=== PATIENT | male | born 1960 | race Caucasian/White ===

== ENCOUNTER 2017-05-04 05:59 | Inpatient (IN) | payer OTHER ==
[2017-04-19 15:31] LABS: BASOPHILS % (AUTO) 2.1 % (0.0-2.0); HEMATOCRIT 51.7 % (42.0-52.0); HEMOGLOBIN 17.6 G/DL (14.2-18.0); LYMPHOCYTES % (AUTO) 28.3 % (20.0-45.0); MEAN CORPUSCULAR VOLUME 93 FL (80-99); MONOCYTES % (AUTO) 6.7 % (1.0-10.0); NEUTROPHILS % (AUTO) 57.9 % (45.0-75.0); PLATELET COUNT 310 K/UL (150-450); RED BLOOD COUNT 5.57 M/UL (4.70-6.10); RED CELL DISTRIBUTION WIDTH 11.2 % (11.6-14.8); WHITE BLOOD COUNT 11.3 K/UL (4.8-10.8)
[2017-04-19 15:45] LABS: APPEARANCE,URINE CLEAR; BILIRUBIN, URINE NEGATIVE (NEGATIVE); COLOR,URINE PALE YELLOW; GLUCOSE, URINE (UA) 4+ (NEGATIVE); KETONES,URINE NEGATIVE (NEGATIVE); LEUKOCYTE ESTERASE ,URINE NEGATIVE (NEGATIVE); NITRITE,URINE NEGATIVE (NEGATIVE); PH,URINE 6 (4.5-8.0); PROTEIN,URINE NEGATIVE (NEGATIVE); UROBILINOGEN,URINE NORMAL MG/DL (0.0-1.0)
[2017-04-19 15:56] LABS: ALANINE AMINOTRANSFERASE 144 U/L (12-78); ALBUMIN 4.2 G/DL (3.4-5.0); ALBUMIN/GLOBULIN RATIO 1.1 (1.0-2.7); ALKALINE PHOSPHATASE 120 U/L (46-116); ANION GAP 8 mmol/L (5-15); ASPARTATE AMINO TRANSFERASE 62 U/L (15-37); BILIRUBIN,TOTAL 1.1 MG/DL (0.2-1.0); BLOOD UREA NITROGEN 15 mg/dL (7-18); CALCIUM 9.4 MG/DL (8.5-10.1); CARBON DIOXIDE 28 MMOL/L (21-32); CHLORIDE 100 MMOL/L (98-107); POTASSIUM 4.1 MMOL/L (3.5-5.1); SODIUM 136 MMOL/L (136-145)
[2017-04-19 16:16] LABS: BILIRUBIN,DIRECT 0.1 MG/DL (0.0-0.3)
--- NOTE | 2017-04-19 16:18 | Diagnostic Imaging Report ---
Indication: Dyspnea Comparison: None 2 views of the chest obtained. No definite infiltrate or pulmonary vascular congestion identified. The heart is enlarged. The aorta is mildly enlarged consistent with atherosclerotic vascular disease. Degenerative changes of the thoracic spine noted. The bones are osteopenic. Impression: No acute disease
[2017-05-04] VITALS (13 sets, daily range): BP systolic 90–130; BP diastolic 47–87
[~2017-05-04] VITALS: Ht 185.4 cm; Wt 114.3 kg
[2017-05-04] MEDS ORDERED: ceFAZolin sod 2 GM in D5W 110 ML IVPB SCH (07:00)
[2017-05-04] MEDS ORDERED: Thrombin 5000 units TOPIC ONE (07:14)
[2017-05-04] MEDS ORDERED: Bupivacaine 0.5% Inj 30 ml vial INJ ONE (07:15)
[2017-05-04] MEDS ORDERED: EPINEPHrine 1mg/1ml Amp ONE (07:15)
[2017-05-04] MEDS ORDERED: Thrombin 5000 units spray kit TOPIC ONE (07:16)
[2017-05-04] MEDS ORDERED: Gelfoam Absorbable 1gm powder pkt TOPIC ONE (07:16)
[2017-05-04] MEDS ORDERED: Bacitracin 50000 Units Vial ONE (07:16)
[2017-05-04] MEDS ORDERED: BUPROPION XL300 M1 PO (07:29)
[2017-05-04] MEDS ORDERED: FAMOTIDINE20 MG ORAL (07:29)
[2017-05-04] MEDS ORDERED: SYNTHROID200 MCG ORAL (07:29)
[2017-05-04] MEDS ORDERED: PROVENTIL HFA6.7 G1 IH (07:29)
[2017-05-04] MEDS ORDERED: LOSARTAN POTASS50 MG ORAL (07:29)
[2017-05-04] MEDS ORDERED: Succinylcholine 20mg/ml 10ml vial ONE (08:30)
[2017-05-04] MEDS ORDERED: Glycopyrrolate 0.2mg/ml 1ml Vial ONE (08:30)
[2017-05-04] MEDS ORDERED: Zemuron 50mg/5ml Inj IV ONE (08:30)
[2017-05-04] MEDS ORDERED: Neostigmine 1mg/ml 10ml Inj ONE (08:30)
[2017-05-04] MEDS ORDERED: LR 1000ml ONE (08:30)
[2017-05-04] MEDS ORDERED: Propofol 1,000mg/ 100ml btl IV ONE (08:30)
[2017-05-04] MEDS ORDERED: Midazolam 2mg/2ml Inj ONE (08:30)
[2017-05-04] MEDS ORDERED: Ketorolac 30mg Inj ONE (08:30)
[2017-05-04] MEDS ORDERED: fentaNYL 100 mcg/2 mL IV ONE (08:30)
[2017-05-04] MEDS ORDERED: NS Irrig 1000ml ONE (08:30)
[2017-05-04] MEDS ORDERED: Morphine Sulfate 10mg/ml Inj ONE (08:30)
[2017-05-04] MEDS ORDERED: Sterile Water Irrig 1000ml IRRIG ONE (08:30)
--- NOTE | 2017-05-04 09:07 | Pre-Procedure Note/Attestation ---
Pre-Procedure Note/Attestation Complete Prior to Procedure Procedure Narrative: XLIF l23, PSF with decompression Indications for Procedure Pre-Operative Diagnosis: l23 hnp, instability and L stenosis Attestation I attest that I discussed the nature of the procedure; its benefits; risks and complications; and alternatives (and the risks and benefits of such alternatives ), prior to the procedure, with the patient (or the patient's legal inventory representative). I attest that, if there was a reasonable possibility of needing a blood transfusion, the patient (or the patient's legal inventory representative) was given the [facility] standardized written summary, pursuant to the Brandan Blackshear Blood Safety Act ([place] Health and Safety Code # 1645, as amended). I attest that I re-evaluated the patient just prior to the surgery and that there has been no change in the patient's H&P, except as documented below: ROXANA JAVIER May 04, 2017 09:07
--- NOTE | 2017-05-04 09:10 | Brief Operative Note ---
Immediate Post Operative Note Operative Note Pre-op Diagnosis: l23 hnp, instability and L stenosis Procedure: L23 XLIF, PSF with decompression Post-op Diagnosis: same as pre-op Findings: consistent w/pre-op dx studies Surgeon: stuart Paper Inserter: reba gonzalez Additional Surgeons: paresh huerta Anesthesiologist: mir Anesthesia: general Specimen: yes - disk Complications: none Condition: stable Fluids: 1500 Estimated Blood Loss: volume - 200 Drains: hemovac Implant(s) used?: Yes - xlif rti and PSF ROXANA Maldonado May 04, 2017 09:10
--- NOTE | 2017-05-04 10:00 | Anethesia Preoperative Eval ---
Anesthesia Pre-op PMH/ROS General Date of Evaluation: May 04, 2017 Time of Evaluation: 07:50 Anesthesiologist: Cheryl ASA Score: ASA 3 Mallampati Score Class I : Soft palate, uvula, fauces, pillars visible Class II: Soft palate, uvula, fauces visible Class III: Soft palate, base of uvula visible Class IV: Only hard plate visible Mallampati Classification: Class III Surgeon: Tami Diagnosis: Lumbar spinal stenosis Surgical Procedure: L2-L3 XLIFT posterior spinal fusion Anesthesia History: none Family History: no anesthesia problems Allergies: Coded Allergies: BEE VENOM PROTEIN (HONEY BEE) (Verified Allergy, Severe, 05/04/17) BEE STING-ANAPHYLACTIC SHOCK HONEY (Verified Allergy, Severe, 05/04/17) ANAPHYLACTIC SHOCK IODINE (Verified Allergy, Severe, 05/04/17) ANAPHYLACTIC SHOCK Uncoded Allergies: SHELLFISH (Allergy, Severe, 05/04/17) ANAPHYLACIC SHOCK Medications: see eMAR Past Medical History Cardiovascular: Reports: HTN, Denies: CAD, [place], valve dz, arrhythmia, other Pulmonary: Reports: asthma - mild, MOODY - on CPAP at home Gastrointestinal/Genitourinary: Reports: GERD, Denies: CRI, ESRD, other Neurologic/Psychiatric: Reports: depression/anxiety, Denies: dementia, CVA, TIA, other Endocrine: Reports: DM - uncontroled, hypothyroidism - stable, Denies: steroids, other HEENT: Denies: cataract (L), cataract (R), glaucoma, [place] (L), SHO[place] (R), other Hematology/Immune: Denies: anemia, DVT, bleeding disorder, other Musculoskeletal/Integumentary: Denies: OA, RA, DJD, DDD, edema, other Other: obesity PMH Narrative: as above PSxH Narrative: Partial colectomy for diverticulitis with take down colostomy incisional hernia repair, bilateral knee Sx Anesthesia Pre-op Phys. Exam Physician Exam Last Vital Signs Date Time Temp Pulse Resp B/P (MAP) Pulse Ox O2 Delivery O2 Flow Rate FiO2 05/04/17 07:31 97.9 79 20 129/87 96 Room Air 97.9 Constitutional: NAD Neurologic: CN 2-12 intact Cardiovascular: RRR Respiratory: CTA Gastrointestinal: other - obesity Airway Exam Mallampati Score: Class III MO: limited Neck: short ROM: limited Teeth: missing Dentures: no upper, no lower Anesthesia Pre-op A/P Labs see chart Accucheck 275 at admission 10 units of regular insulin s/q preoperatively Studies Pre-op Studies: EKG - NSR, CXR - WNL Risk Assessment & Plan Assessment: ASA 3 Plan: GA with ETT neuromonitoring Status Change Before Surgery: No Pre-Antibiotics Drug: Ancef 2gr, Gentamycin 80mg. Given Within 1 Hr of Incision: Yes Time Given: 09:32 LORENZA SEPULVEDA M.D. May 04, 2017 10:00
[2017-05-04] MEDS ORDERED: LR 1000ml 1,000 ML IVLG SCH ×2 (10:02→15:00)
[2017-05-04] MEDS ORDERED: Midazolam 2mg/2ml Inj IVP PRN ×2 (10:15→15:00)
[2017-05-04] MEDS ORDERED: DiphenhydrAMINE 50mg/ml Inj IVP PRN ×3 (10:15→15:00)
[2017-05-04] MEDS ORDERED: Hydromorphone 0.5mg/0.5ml inj IVP PRN ×2 (10:15→15:00)
[2017-05-04] MEDS ORDERED: Ketorolac 30mg Inj IV PRN ×2 (10:15→15:00)
[2017-05-04] MEDS ORDERED: Meperidine 50mg/ml Inj(FOR RIGORS ONLY) IV PRN ×4 (10:15→15:00)
[2017-05-04] MEDS ORDERED: Acetaminophen (Non formulary) 100 ML IV ONE (10:15)
[2017-05-04] MEDS ORDERED: Propofol 200mg/20ml IV ONE (11:26)
[2017-05-04] MEDS ORDERED: Rate Change PCA 1 Each MISC PRN (12:00)
[2017-05-04] MEDS ORDERED: PCA HYDROmorphone 1mg/ml 30 ML IV PRN ×2 (12:00→18:57)
[2017-05-04] MEDS ORDERED: LORazepam 1mg tab ORAL PRN (12:00)
[2017-05-04] MEDS ORDERED: Naloxone 0.4mg/ml Inj IVP PRN (12:00)
[2017-05-04] MEDS ORDERED: Milk of Magnesia 30ml Ud ORAL PRN (12:15)
[2017-05-04] MEDS ORDERED: Acetaminophen 650 MG SUPP RECTAL PRN (12:15)
[2017-05-04] MEDS ORDERED: cefOXitin 1gm Inj ONE (12:18)
[2017-05-04] MEDS ORDERED: PCA Education Pamphlet MISC ONE (14:00)
--- NOTE | 2017-05-04 14:30 | Operative Note - Dictated ---
DATE OF OPERATION: 05/04/2017 SURGEONS: 1. Jeffery Payne M.D. (for the approach). 2. Lucio Garrett M.D. (for the spine procedure). ANESTHESIOLOGIST: Virgil Luna M.D. ANESTHESIA: General endotracheal. PREOPERATIVE DIAGNOSIS: Disk disease L2-L3 (1 interspace). POSTOPERATIVE DIAGNOSIS: Disk disease L2-L3 (1 interspace). OPERATIVE PROCEDURES: 1. Muscle sparing extraperitoneal - extrapleural extreme lateral interbody fusion, L2-L3 (1 interspace). 2. Transpsoas exposure of the lateral surface of the spine at L2-L3. 3. Resection, left 12th rib. INFORMED CONSENT: The procedure of access for an extreme lateral interbody fusion was explained in detail to the patient preoperatively via the phone and repeated in the preoperative holding area. The risks including hemorrhage, infection, visceral injury, nerve injury, and pneumothorax were explained. The patient stated that he understood the procedure, its rationale and risks. He had no further questions and accepted the procedures as outlined above. Background information, indications for surgery, description of operative findings and specimens removed will be contained in Dr. Garrett's operative report. OPERATIVE FINDINGS PERTINENT TO ACCESS: All retroperitoneal and retropleural structures were normal. OPERATIVE PROCEDURE: The patient was brought to the operating room in stable condition. Monitoring was instituted with arterial line, ECG, O2 saturation monitor and blood pressure cuff. A left foot pulse oximeter was placed to monitor circulation to the left lower extremity. The patient was induced with anesthesia without any difficulty. The patient was placed in the right lateral decubitus position for a left lateral flank incision. The patient was prepared and draped in a sterile fashion. Under fluoroscopic guidance, level of the L2-L3 disk was marked on the skin. A transverse incision was made at the appropriate level as determined by fluoroscopy. The subcutaneous tissue was divided using electrocautery. The fascia of the latissimus dorsi was incised with the cautery. Using a muscle sparing technique, the fibers of the latissimus dorsi muscle was in the direction of their fibers. The left twelfth rib was exposed and the tip of the rib and proximal portion of the rib were resected subperiosteally for approximately 3 to 4 centimeters. This was saved for graft material. The extrapleural and the retroperitoneal spaces were entered through the bed of the rib. The fibers of the diaphragm were mobilized superiorly. Thus, the psoas muscle and some fibers of the diaphragmatic crural muscle were identified. Once the dissection was completed in the quadratus lumborum, psoas and crural muscles were identified, the fibers of the psoas and the crural muscle were using a muscle-sparing technique. The disk was identified. Using neuromonitoring to confirm that there were no nerves in the area, a K-wire was deployed into the disc. Using the dilators with neural monitoring, the appropriate access to the L2-L3 disk was created. The retractor system was deployed over the dilators. Under fluoroscopic guidance of the midportion of the disc and the appropriate level were confirmed. Neuromonitoring was used to show that no nerves were in proximity to the area. Once the system was deployed, Dr. Garrett proceeded to perform the diskectomy, partial vertebrectomy, and fusion using the appropriate technique and hardware. Once this was completed, the retractor system was removed. Inspection was carried out for hemostasis while gradually removing the retractor system. Once the retractor system was removed, the peritoneum came to its normal anatomic position. The muscle layers and diaphragm came back to their normal anatomic position. The muscle layers were closed with a continuous suture of #0 PDS II. The subcutaneous tissue was closed with a continuous suture of 2-0 Vicryl. The skin was approximated further using a continuous subcuticular stitch of 2-0 Vicryl. Steri-Strips and a sterile dressing were applied. Manual and visual sweeps were correct. Estimated blood loss was minimal and less than 15 mL. Final sponge, needle, and instrument counts were verified as correct x2. The patient remained in the operating room, under anesthesia, in stable condition for repositioning and further surgery. The pulse oximeter showed 100% oxygen saturation with a normal triphasic waveform consistent with preoperative baseline. Dorsalis pedis and posterior tibial pulses were +2 and bilaterally symmetrical. Jeffery Payne M.D. DR: DAISHA JOB#: [id number] CC: Lucio Garrett M.D.; Fax#: [phone] MTDD
--- NOTE | 2017-05-04 14:53 | Diagnostic Imaging Report ---
Indication: Pain, intraoperative Technique: Intraoperative images Comparison: none Findings: Intraoperative images demonstrate surgical tool projected at the posterior aspect of what is presumably the L2-3 disc. Subsequent images demonstrate placement of a disc spacer in the L2-3 disc, subsequent placement of hardware bridging the L2 and L3 spinous processes Impression: Intraoperative imaging, as described
--- NOTE | 2017-05-04 15:51 | Immediate Post-Op Evaluation ---
Immediate Post-Op Evalulation Immediate Post-Op Evalulation Procedure: L2-L3 XLIFT posterior laminotomy with decompression and interbody fusion Date of Evaluation: May 04, 2017 Time of Evaluation: 14:35 IV Fluids: 1500 Blood Products: Albumin 250 Estimated Blood Loss: 200 Urinary Output: 250 Blood Pressure Systolic: 104 Blood Pressure Diastolic: 56 Pulse Rate: 72 Respiratory Rate: 20 O2 Sat by Pulse Oximetry: 98 Temperature (Fahrenheit): 97.8 Pain Score (1-10): 2 Nausea: No Vomiting: No Complications none Patient Status: reacts, patent, extubated, none Hydration Status: adequate LORENZA SEPULVEDA M.D. May 04, 2017 15:51
[2017-05-04] MEDS ORDERED: D5 1/2NS 1,000 ML IV SCH (17:42)
[2017-05-04] MEDS: Docusate 100mg cap ORAL SCH (18:00)
--- NOTE | 2017-05-04 18:50 | Internal Med Progress Note ---
Subjective Date of Service: May 04, 2017 Physician Name Eduardo Dunbar Attending Physician Lucio Garrett Current Medications Medications (Trade) Dose Ordered Sig/Rebekah Route PRN Reason Start Time Stop Time Status Last Admin Dose Admin Acetaminophen (Tylenol) 650 mg Q4H PRN RECTAL headache or temp>101 05/04/17 12:15 06/03/17 12:14 Al Hydroxide/Mg Hydroxide (Mylanta) 30 ml Q6H PRN ORAL GERD 05/04/17 18:45 06/03/17 18:44 UNV Albuterol Sulfate (Proventil MDI) 2 puff QIDRT INH 05/04/17 19:00 06/03/17 18:59 Bupropion HCl (Wellbutrin XL) 300 mg QHS ORAL 05/04/17 21:00 06/03/17 20:59 Cefazolin Sodium 1 gm/Sodium Chloride 55 ml @ 110 mls/hr Q8H IV 05/05/17 00:00 05/05/17 16:29 Dextrose/Sodium Chloride 1,000 ml @ 100 mls/hr Q10H IV 05/04/17 17:42 06/03/17 17:41 Diphenhydramine HCl (Benadryl) 25 mg Q6H PRN IVP Itching/Pruritis 05/04/17 12:00 05/06/17 11:59 Diphenhydramine HCl (Benadryl) 25 mg Q6H PRN ORAL Itching 05/04/17 18:45 06/03/17 18:44 UNV Docusate Sodium (Colace) 100 mg TWICE A DAY ORAL 05/04/17 18:00 06/03/17 17:59 Famotidine (Pepcid) 20 mg BID ORAL 05/05/17 09:00 06/04/17 08:59 Hydromorphone HCl 30 ml @ 0 mls/hr Q24H PRN IV For Pain 05/04/17 12:00 05/06/17 11:59 05/04/17 15:19 Insulin Aspart (NovoLOG) ACCUCHECK AC AND HS AC+HS SUBQ 05/04/17 17:38 06/03/17 17:37 Levothyroxine Sodium (Synthroid) 200 mcg DAILY@0630 ORAL 05/05/17 06:30 06/04/17 06:29 Lorazepam (Ativan) 1 mg Q4H PRN ORAL Muscle Spasm 05/04/17 12:00 05/06/17 11:59 Losartan Potassium (Cozaar) 50 mg DAILY ORAL 05/05/17 09:00 06/04/17 08:59 UNV Magnesium Hydroxide (Mom) 30 ml QIDPRN PRN ORAL Constipation 05/04/17 12:15 06/03/17 12:14 Miscellaneous Medication (COLLEGE INTERN Rate Change) 1 ea DAILY PRN MISC rate change 05/04/17 12:00 05/06/17 11:59 Miscellaneous Medication (COLLEGE INTERN shift volume) 1 ea Q12HR@0700,1900 MISC 05/04/17 19:00 05/06/17 18:59 Naloxone HCl (Narcan) 0.1 mg PRN PRN IVP RR<12/min, pt unarousable 05/06/17 12:00 06/05/17 11:59 Naloxone HCl (Narcan) 0.1 mg Q1M PRN IVP RR<10/min OR SBP<90 mmHg 05/04/17 12:00 05/06/17 11:59 Non-Formulary Medication (Non-Formulary Med) 1 ea DAILY ORAL 05/04/17 17:15 06/03/17 17:14 UNV Ondansetron HCl (Zofran) 4 mg Q4HR PRN IVP Nausea & Vomiting 05/04/17 18:45 06/03/17 18:44 UNV Pantoprazole (Protonix) 40 mg BEDTIME ORAL 05/04/17 21:00 06/03/17 20:59 UNV Promethazine HCl (Phenergan) 12.5 mg Q8HR PRN IM Nausea & Vomiting 05/04/17 18:45 06/03/17 18:44 UNV Temazepam (Restoril) 7.5 mg HSPRN PRN ORAL Insomnia 05/04/17 21:00 05/06/17 20:59 Temazepam (Restoril) 15 mg HSPRN PRN ORAL Insomnia 05/06/17 21:00 05/13/17 20:59 Allergies: Coded Allergies: BEE VENOM PROTEIN (HONEY BEE) (Verified Allergy, Severe, 05/04/17) BEE STING-ANAPHYLACTIC SHOCK HONEY (Verified Allergy, Severe, 05/04/17) ANAPHYLACTIC SHOCK IODINE (Verified Allergy, Severe, 05/04/17) ANAPHYLACTIC SHOCK Uncoded Allergies: SHELLFISH (Allergy, Severe, 05/04/17) ANAPHYLACIC SHOCK ROS Limited/Unobtainable: No Constitutional: Reports: no symptoms HEENT: Reports: no symptoms Cardiovascular: Reports: no symptoms Respiratory: Reports: no symptoms Gastrointestinal/Abdominal: Reports: no symptoms Genitourinary: Reports: no symptoms Neurologic/Psychiatric: Reports: no symptoms Subjective 57 YO M admitted with herniated disc and stenosis lumbar spine. S/P L2-3 fusion /disectomy 05/04/17. Cover for Int Med-Dr Restrepo Objective Last Vital Signs Date Time Temp Pulse Resp B/P (MAP) Pulse Ox O2 Delivery O2 Flow Rate FiO2 05/04/17 16:30 15 05/04/17 15:51 208.0 72 98 05/04/17 15:50 102/58 Nasal Cannula 3.0 General Appearance: WD/WN, alert, moderate distress, obese EENT: PERRL/EOMI, normal ENT inspection Neck: non-tender, normal alignment, supple Cardiovascular: normal peripheral pulses, normal rate, regular rhythm, no gallop/murmur, no JVD Respiratory/Chest: chest wall non-tender, lungs clear, normal breath sounds, no respiratory distress, no accessory muscle use Abdomen: normal bowel sounds, non tender, soft, no organomegaly, no mass Extremities: normal range of motion, non-tender Neurologic: deck mate II-XII grossly normal, no motor/sensory deficits Skin: normal pigmentation, warm/dry Assessment/Plan Problem List: (1) HTN (hypertension) Assessment & Plan: continue losartan (2) Pre-diabetes Assessment & Plan: Continue novolog sliding scale (3) Hypothyroidism Assessment & Plan: Continue synthroid (4) Obstructive sleep apnea (5) Herniated nucleus pulposus, L2-3 left Assessment & Plan: S/P L2-3 fusion/disectomy-see surgery note Status: not improved EDUARDO DUNBAR May 04, 2017 18:50
[2017-05-04] MEDS: NovoLOG Insulin Flexpen SUBQ SCH ×3 (19:00→21:39)
[2017-05-04] MEDS: PCA shift volume MISC SCH (19:00)
--- NOTE | 2017-05-04 19:15 | Operative Note - Dictated ---
DATE OF OPERATION: 05/04/2017 SURGEON: Lucio Garrett M.D. VASCULAR ACCESS SURGEON: Jeffery Payne M.D. TALENT AGENT: Osmin Valentino PA-C. ANESTHESIA: General endotracheal anesthesia. ANESTHESIOLOGIST: Virgil Luna M.D. PREOPERATIVE DIAGNOSIS: Disk protrusion L2-L3 with left-sided facet cyst and progressive deformity. POSTOPERATIVE DIAGNOSIS: Disk protrusion L2-L3 with left-sided facet cyst and progressive deformity. PROCEDURES: 1. Far lateral extraforaminal interbody fusion L2-L3 approach through a left-sided approach. 2. Interbody fusion L2-L3. 3. [place] of rib for bone graft purposes. 4. Use of allograft (Signafuse). 5. Use of PEEK cage RTI interbody fusion device. 6. Use of fluoroscopy. 7. Neurodiagnostic monitoring. ESTIMATED BLOOD LOSS: Minimal. COMPLICATIONS: None. FINDINGS: Early calcification of the disk along the far lateral aspect of L2-L3. RISK NOTE: The patient was explained in detail risks and benefits of surgery to include, but not be limited to, those of bleeding, infection, damage to nerves, vessels, tendons, anesthetic risk, allergic reaction, aspiration, and possibly . The patient understood and wished to proceed. INDICATIONS: The patient is a very pleasant gentleman, who sustained an injury to his back resulting in mechanical pain and radiation. Surgical intervention was discussed after conservative care has failed. The patient elected to proceed. OPERATIVE PROCEDURE IN DETAIL: The patient was taken to the operative suite. After general endotracheal anesthesia was obtained, Garcia catheter was placed. He was then turned right side down lateral decubitus position with the body bent to the side in order to correct the deformity. Orthogonal x-ray views of the L2-L3 level were obtained and the skin was marked appropriately. The flank was then prepped and draped in the usual sterile fashion. The approach was performed by Dr. Payne and will be dictated separately. A lowest rib was also resected to obtain bone graft material. At this point, once the retractors had been put into place after serial dilatation was performed and nerve roots testing was performed to avoid injury to the traversing/exited nerve roots. At this point, once the retractors were put in place, direct visualization of the lateral aspect of the disk was obtained. A osteotome was then used to remove the lateral bone edges. Rotating victorino were then serially placed within the disk parallel to the axis of the disk. At this point, debulking of the disk was achieved, endplate preparation was achieved using the ring curette as well as the rasp shaver. At this point, Philipp were then delivered and under fluoroscopic guidance in the AP view, was used to osteotomize/disrupt the annular fibers on the contralateral side. At this point, copious irrigation was performed. Loose disk fragments were removed. Once happy with the disk prepped, the appropriate sized (11 mm x 18 mm lordotic RTI XLIF PEEk cage was chosen and measured to be 50 mm in length. The implant was then packed with Signafuse as well as local autograft bone and packed into the center of the disk with good endplate apposition bilaterally. At this point, copious irrigation was performed. Closure will be dictated separately by Dr. Payne. Sponge and needle counts were correct. Complications none. Lucio Garrett M.D. DR: LITZY JOB#: [id number] CC: TL
[2017-05-04] MEDS: BuPROPion XL 300mg tab ORAL SCH (21:21)
--- NOTE | 2017-05-04 22:00 | Operative Note - Dictated ---
DATE OF OPERATION: 05/04/2017 PREOPERATIVE DIAGNOSES: 1. L2-L3 disk protrusion, left side with facet cyst, left side. 2. Progressive diskopathy requiring stabilization/fusion. 3. Status post XLIF procedure performed earlier L2-L3. 4. Mechanical back pain and progressive deformity. POSTOPERATIVE DIAGNOSES: 1. L2-L3 disk protrusion, left side with facet cyst, left side. 2. Progressive diskopathy requiring stabilization/fusion. 3. Status post XLIF procedure performed earlier L2-L3. 4. Mechanical back pain and progressive deformity. PROCEDURES: 1. Posterior spinal fusion, L2-L3. 2. Interspinous nonsegmental fusion using StabiLink device. 3. Hemilaminectomy, left side L2-L3 with neurolysis and diskectomy, left side. 4. Use of local autograft. 5. Use of Signafuse allograft substitute. 6. Use of fluoroscopy. ESTIMATED BLOOD LOSS: Minimal. COMPLICATIONS: None. FINDINGS: 1. Marked lateral recess stenosis, left side L2-L3 with neovascularization, epidural vein formation, and adhesions. 2. Left-sided far lateral, lateral recess disk herniation. INDICATIONS: The patient is a very pleasant gentleman, sustained an injury to his back requiring surgical stabilization and decompression. He had failed conservative care. Radiographic progression of abnormalities were noted. Surgical intervention was recommended. The patient elected to proceed. RISK NOTE: The patient was explained in detail risks and benefits of surgery to include, but not be limited to those of bleeding, infection, damage to nerves, vessels, tendons, anesthetic risk, allergic reaction, aspiration, possibly , possible risk of hardware failure, pseudoarthrosis, and need for additional surgery was discussed. The patient understood and wished to proceed. OPERATIVE PROCEDURE IN DETAIL: Under benefits of general anesthesia, the patient was turned prone onto a radiolucent table. The back was prepped and draped in the usual sterile fashion. All bony prominences were well padded. The fluoroscope was brought in place and L2-L3 level was identified. Incision was carried out from L2 through L3. Subperiosteal dissection was carried out bilaterally. The fluoroscope was brought in place and the levels were once again reconfirmed. The facet capsule was elevated and removed with Bovie bilaterally. At this point, under microscopic visualization, hemilaminectomy was performed at the inferior portion of L2, superior portion of L3 as well as generous facetectomy. This was performed using a high-speed drill as well as Kerrison punch. Ligamentum flavum was then removed in a piecemeal fashion. Dural sac was exposed. It was gently retracted medially. Care was then taken to identify the annulus, which was markedly thickened with extensive neovascularization and adhesions. Bipolar was used to cauterize the blood vessels and meticulous neurolysis was achieved. A #15 blade was used to perform an annulotomy and a disk herniation/fragments in the posterior lateral corner of the disk was identified and removed. Once satisfied with this, neural foramen was probed and noted to be patent. Copious irrigation was performed. FloSeal was applied. Interspinous ligament was then removed. A size 8 StabiLink interspinous fixation device was chosen and deployed. Please note that prior to placement of the StabiLink, decortication of the lamina of L2 and L3 as well as the facet joint at L2 and L3 on the right side was achieved. Local autograft bone as well as Signafuse bone graft substitute was placed between the lamina and facet joint. Once the StabiLink device was deployed, it was cinched, compressed, and secured into place with excellent overall fixation. Microscope was removed. AP and lateral x-ray projections/fluoroscopic images were good with good overall hardware placement and stabilization. Medium size Hemovac drain was placed deep to the fascia. Fascia was repaired using #1 Vicryl and subcutaneous closure using 2-0 Vicryl. Dermabond and sterile dressing was applied. The patient was subsequently awakened, extubated, and transferred to recovery room in stable condition. Sponge and needle counts were correct. Lucio Garrett M.D. DR: Lilo JOB#: [id number] CC: TL
--- NOTE | 2017-05-04 22:45 | Consultation ---
DATE OF CONSULTATION: 05/04/2017 CONSULTING PHYSICIAN: Lucio Fragoso M.D. REFERRING PHYSICIAN: Lucio Garrett M.D. REASON FOR CONSULTATION: Acute pain consult. HISTORY OF PRESENT ILLNESS: Dr. Lucio Garrett, Thank you kindly for consulting me to evaluate and render an opinion as to how to proceed in the management of the patient's acute postoperative lumbar spine surgery pain after lumbar spine fusion surgery with instrumentation. The patient is a pleasant 57-year-old gentleman who injured his lumbar spine. Today, he underwent extensive lumbar spine surgery with fusion and instrumentation. He complained of severe pain, postoperative nausea and vomiting, PONV postoperatively. You consulted me to help with this patient's pain control. I saw the patient at bedside where I performed detailed history and physical examination. I reviewed the medical record in detail including preoperative records by Dr. Restrepo and diagnostic testing. I reviewed multiple records from today's date of surgery at [facility] including records from the surgery suite, the nursing department. I also spoke with the hospital pharmacist, Karena. I spent over 75 minutes in consultation with an additional 30 minutes in medical record review. PAST MEDICAL HISTORY: 1. Acute postoperative lumbar spine pain status post lumbar spine fusion surgery with instrumentation by Dr. Lucio Garrett April 2017. 2. Postoperative nausea and vomiting. 3. Obesity. 4. Obstructive sleep apnea. 5. Slip and fall injury September 19, 2014. 6. Diabetes. 7. Hypothyroidism. 8. Fatty liver disease. 9. Allergic rhinitis. 10. Asthma. 11. GERD. 12. Hypertension. 13. Diverticulitis status post perforation 2002. PAST SURGICAL HISTORY: 1. Right knee surgery November 2014. 2. Left knee surgery in 1996. 3. Abdominal hernia repair. 4. Multiple abdominal surgeries due to perforated diverticulum and colon surgery with ostomy takedown 2002. ALLERGIES: Iodine causes anaphylactic shock. Aspirin causes stomach cramps. Bee honey and shellfish. MEDICATIONS: At home Wellbutrin XL 300 mg at bedtime, albuterol, Pepcid, Synthroid 200 mcg daily, losartan 50 mg daily. FAMILY HISTORY: Pulmonary embolism, colon cancer. SOCIAL HISTORY: The patient is currently on disability after working in the [employer] and [employer] previously. He denies tobacco, alcohol, or illicit drug use. The patient lives alone. REVIEW OF SYSTEMS: Per Arie Restrepo M.D. PHYSICAL EXAMINATION: VITAL SIGNS: Age 57, height 5 feet 11 inches, weight 252 pounds, body mass index 35. Vital signs, afebrile, pulse 64, respirations 15, blood pressure 102/58, oxygen saturation 95% on supplemental oxygen. HEENT: Alopecia. No Snyder's palsy. No Kev syndrome. Extraocular muscles intact. Pupils are equal, round, and accommodative. ABDOMEN: Shows a well-healed old midline abdominal scars from his perforated colon surgery 15 years ago. Positive obesity. Positive bowel sounds. CHEST: Barrel chested with no wheezes appreciated. The patient appears non-toxic. No accessory muscle use appreciated. Moving all extremities x4. Lumbar spine shows pain by incision area with dressing, clean, and dry. Hemovac drain holding suction. Moving all extremities x4. A 5/5 dorsiflexion, 5/5 plantar flexion in bilateral lower extremities. Garcia catheter in place. GENITOURINARY: Deferred. DIAGNOSTIC TESTING: Shows laboratory studies May 04, 2017 shows INR 1.0, PTT 26, white count 11, hematocrit 52, and platelets 310. Sodium 136, potassium 4.1, chloride 100, bicarbonate 28, BUN 15, creatinine 1.0, glucose 300, calcium 9.4, phosphorus 3.0, total bilirubin 1.1, AST 62, ALT 144. Total protein 8.1. Albumin 4.2, alkaline phosphatase 120. Urinalysis shows 4+ glucose. Preoperative chest x-ray shows no acute cardiopulmonary disease April 19, 2017. Preoperative 12-lead EKG shows normal sinus rhythm, no evidence for acute cardiac ischemia. MRI lumbar spine dated April 26, 2017 impression 4-5 disk protrusion L2-L3 3 to 4 mm disk protrusion at L4-L5, 2 mm disk bulge L3-L4. IMPRESSION: 1. Acute postoperative lumbar spine pain status post lumbar spine fusion surgery with instrumentation by Dr. Lucio Garrett April 2017. 2. Postoperative nausea and vomiting. 3. Obesity. 4. Obstructive sleep apnea. 5. Slip and fall injury September 19, 2014. 6. Diabetes. 7. Hypothyroidism. 8. Fatty liver disease. 9. Allergic rhinitis. 10. Asthma. 11. GERD. 12. Hypertension. 13. Diverticulitis status post perforation 2002. TREATMENT RECOMMENDATIONS: I performed detailed examination the patient at bedside. I also took a detailed medication history after his multiple abdominal surgeries back in 2002 after his perforated diverticulum. He tolerated Dilaudid and Percocet without any difficulties. He has subsequently had knee surgery and also tolerated the oxycodone without difficulties. He does have mild nausea. I have placed him on a Dilaudid SUPERVISOR PHOTOCOMPOSITION with a 0.2 mg demand dose at 10-minute lockout and no underlying interval basal rate. I have also added a breakthrough dose of Dilaudid 1 mg subcutaneously every three hours p.r.n. for severe breakthrough pain because the patient does tolerate oxycodone without any adverse side effects such as nausea. I have added a p.r.n. dose of oxycodone 10 mg orally every three hours p.r.n. for moderate breakthrough pain. This dose may need to be altered if the dosing is too weak or too strong. I have streamlined his medication list to reduce any other narcotics in use beyond low-dose Restoril for insomnia 15 mg temazepam p.r.n. at bedtime. I will restart the patient's Wellbutrin for mood stabilization. I will defer the patient's multiple medical issues to Dr. Restrepo and hospitalist team. The patient did bring in his home unit of CPAP device for him to use at night for his chronic sleep apnea. The patient has been placed on Pepcid b.i.d. for GI ulcer prophylaxis and I have ordered p.r.n. dose of Mylanta 30 mL q.6 hours in case of any GERD symptom exacerbation. The patient has been restarted on his Cozaar for his hypertension and I have added a p.r.n. dose of clonidine 0.1 mg orally every 8 hours p.r.n. for hypertension with systolic blood pressure greater than 160 mmHg. I have ordered Benadryl 25 mg every 6 hours p.r.n. for any itching complaints. In case of nausea symptoms, I have ordered Zofran 4 mg intravenously every 4 hours as a first-line agent with a second-line agent of intramuscular Phenergan 12.5 mg every eight hours. I have ordered incentive spirometer, encouraged good pulmonary toilet. I will defer DVT prophylaxis to the surgeon. The patient has family history of pulmonary embolism, I certainly would recommend aggressive DVT prophylaxis along with aggressive ambulation as tolerated. Lucio Fragoso M.D. DR: Fernandez JOB#: [id number] CC:
[2017-05-05] MEDS: ceFAZolin sod 1 GM in NS 55 ML IV SCH ×3 (00:01→16:44)
[2017-05-05 00:20] VITALS: BP 133/68
[2017-05-05] MEDS: oxyCODONE 5mg IR tab ORAL PRN ×3 (04:39→20:49)
[2017-05-05 04:51] VITALS: BP 142/77
[2017-05-05] MEDS: NovoLOG Insulin Flexpen SUBQ SCH ×4 (05:50→20:51)
[2017-05-05] MEDS: PSEUDOEPHEDRINE ORAL PRN (05:51)
[2017-05-05] MEDS: CHLORPHENIRAMINE ORAL PRN (05:51)
[2017-05-05] MEDS: Albuterol 90mcg Inhaler 8gm INH SCH ×2 (07:00→08:34)
[2017-05-05] MEDS: PCA shift volume MISC SCH ×2 (07:21→19:29)
[2017-05-05 07:59] LABS: BASOPHILS % (AUTO) 0.5 % (0.0-2.0); EOSINOPHILS % (AUTO) 0.3 % (0.0-3.0); HEMATOCRIT 41.6 % (42.0-52.0); HEMOGLOBIN 14.3 G/DL (14.2-18.0); LYMPHOCYTES % (AUTO) 15.6 % (20.0-45.0); MEAN CORPUSCULAR VOLUME 95 FL (80-99); MONOCYTES % (AUTO) 7.9 % (1.0-10.0); NEUTROPHILS % (AUTO) 75.8 % (45.0-75.0); PLATELET COUNT 257 K/UL (150-450); RED BLOOD COUNT 4.37 M/UL (4.70-6.10); RED CELL DISTRIBUTION WIDTH 11.6 % (11.6-14.8); WHITE BLOOD COUNT 14.7 K/UL (4.8-10.8)
[2017-05-05 08:00] VITALS: BP 121/73
[2017-05-05 08:18] LABS: ANION GAP 7 mmol/L (5-15); BLOOD UREA NITROGEN 15 mg/dL (7-18); CALCIUM 8.4 MG/DL (8.5-10.1); CARBON DIOXIDE 28 MMOL/L (21-32); CHLORIDE 101 MMOL/L (98-107); POTASSIUM 3.8 MMOL/L (3.5-5.1); SODIUM 136 MMOL/L (136-145)
[2017-05-05] MEDS: Docusate 100mg cap ORAL SCH ×2 (08:41→17:43)
[2017-05-05] MEDS: Losartan 50mg tab ORAL SCH (08:42)
[2017-05-05] MEDS ORDERED: Albuterol 90mcg Inhaler 8gm INH PRN (09:00)
[2017-05-05] MEDS ORDERED: Losartan 50mg tab ORAL SCH (09:00)
[2017-05-05] MEDS: HYDROmorphone 1mg/ml Carpuject SUBQ PRN ×2 (10:54→16:53)
--- NOTE | 2017-05-05 11:44 | 48 Hour Post Anesthesia Eval ---
Post Anesthesia Evaluation Procedure: L2-L3 XLIFT posterior laminotomy with decompression and interbody fusion Date of Evaluation: May 05, 2017 Time of Evaluation: 11:43 Blood Pressure Systolic: 121 0: 73 Pulse Rate: 69 Respiratory Rate: 20 Temperature (Fahrenheit): 97.7 O2 Sat by Pulse Oximetry: 100 Airway: patent Nausea: No Vomiting: No Pain Intensity: 3 Hydration Status: adequate Cardiopulmonary Status: Stable Mental Status/LOC: patient returned to baseline Follow-up Care/Observations: 0 Post-Anesthesia Complications: 0 Follow-up care needed: N/A Bakari Flanagan MD May 05, 2017 11:44
[2017-05-05 12:00] VITALS: BP 118/74
--- NOTE | 2017-05-05 13:18 | Orthopedic Spine Progress Note ---
Ortho Spine - Progress Note Subjective Symptoms: c/o post-op back pain, improved Objective Vital Signs: Last 24 Hour Vital Signs Date Time Temp Pulse Resp B/P (MAP) Pulse Ox O2 Delivery O2 Flow Rate FiO2 05/05/17 11:44 207.9 69 20 100 05/05/17 08:42 121/73 05/05/17 08:39 68 20 96 Room Air 05/05/17 08:34 66 20 96 Room Air 05/05/17 08:12 16 05/05/17 08:00 97.8 69 20 121/73 99 97.8 05/05/17 04:51 98.2 66 20 142/77 95 98.2 05/05/17 04:00 16 05/05/17 00:20 97.9 54 18 133/68 96 97.9 05/05/17 00:00 16 05/04/17 20:12 97.9 52 18 130/74 95 97.9 05/04/17 20:00 16 05/04/17 17:00 97.4 52 19 113/63 96 97.4 05/04/17 16:30 15 05/04/17 16:30 97.5 58 19 105/62 98 97.5 05/04/17 16:00 15 05/04/17 15:51 208.0 72 20 98 05/04/17 15:50 98.3 64 15 102/58 95 Nasal Cannula 3.0 98.3 05/04/17 15:45 14 05/04/17 15:43 97.8 05/04/17 15:43 97.8 05/04/17 15:40 61 14 98/52 95 Nasal Cannula 3.0 05/04/17 15:34 15 05/04/17 15:25 60 18 96/53 95 Nasal Cannula 3.0 05/04/17 15:19 98.9 05/04/17 15:19 16 05/04/17 15:13 62 18 109/70 95 Nasal Cannula 3.0 05/04/17 15:13 98.9 05/04/17 15:00 61 16 103/53 95 Nasal Cannula 3.0 05/04/17 14:50 64 20 106/59 96 Nasal Cannula 3.0 05/04/17 14:39 63 25 96/57 95 Simple Mask 6.0 3/13/18 14:34 66 18 90/47 95 Simple Mask 6.0 05/04/17 14:29 97.8 67 26 93/49 95 Simple Mask 6.0 97.8 I&O: Intake and Output 05/04/17 05/05/17 19:00 07:00 Intake Total 2250 ml 1080 ml Output Total 1110 ml 700 ml Balance 1140 ml 380 ml Intake Oral 480 ml IV Total 2000 ml 600 ml Other 250 ml Output Urine Total 850 ml 700 ml Drainage Total 60 ml Estimated Blood Loss 200 ml # Voids 1 Wound: clean, intact Drains: hemovac Neuro Status: normal Assessment Procedure Performed: L23 XLIF, PSF with decompression Plan Plan: PT, pain management, continue antibiotics, d/c drain, discharge plan - possible acute rehab ROXANA JAVIER May 05, 2017 13:18
--- NOTE | 2017-05-05 13:21 | Internal Med Progress Note ---
Subjective Physician Name LaryDiego Attending Physician Lucio Garrett Current Medications Medications (Trade) Dose Ordered Sig/Rebekah Route PRN Reason Start Time Stop Time Status Last Admin Dose Admin Acetaminophen (Tylenol) 650 mg Q4H PRN RECTAL headache or temp>101 05/04/17 12:15 06/03/17 12:14 Al Hydroxide/Mg Hydroxide (Mylanta) 30 ml Q6H PRN ORAL GERD 05/04/17 18:45 06/03/17 18:44 Albuterol Sulfate (Proventil MDI) 2 puff Q6H PRN INH Shortness of Breath 05/05/17 09:00 06/04/17 08:59 Bupropion HCl (Wellbutrin XL) 300 mg QHS ORAL 05/04/17 21:00 06/03/17 20:59 05/04/17 21:21 Cefazolin Sodium 1 gm/Sodium Chloride 55 ml @ 110 mls/hr Q8H IV 05/05/17 00:00 05/05/17 16:29 05/05/17 07:40 Clonidine HCl (Catapres Tab) 0.1 mg Q8HR PRN ORAL For High Blood Pressure 05/04/17 18:45 06/03/17 18:44 Diphenhydramine HCl (Benadryl) 25 mg Q6H PRN ORAL Itching 05/04/17 18:45 06/03/17 18:44 Docusate Sodium (Colace) 100 mg TWICE A DAY ORAL 05/04/17 18:00 06/03/17 17:59 05/05/17 08:41 Famotidine (Pepcid) 20 mg BID ORAL 05/05/17 09:00 06/04/17 08:59 05/05/17 08:42 Hydromorphone HCl 30 ml @ 0 mls/hr Q24H PRN IV For Pain 05/04/17 18:57 05/06/17 18:56 Hydromorphone HCl (Dilaudid) 1 mg Q3HR PRN SUBQ Severe Breakthru Pain (>7) 05/04/17 19:00 05/11/17 18:59 05/05/17 10:54 Insulin Aspart (NovoLOG) ACCUCHECK AC AND HS AC+HS SUBQ 05/04/17 17:38 06/03/17 17:37 05/05/17 12:07 Levothyroxine Sodium (Synthroid) 200 mcg DAILY@0630 ORAL 05/05/17 06:30 06/04/17 06:29 05/05/17 05:51 Losartan Potassium (Cozaar) 50 mg DAILY ORAL 05/05/17 09:00 06/04/17 08:59 Magnesium Hydroxide (Mom) 30 ml QIDPRN PRN ORAL Constipation 05/04/17 12:15 06/03/17 12:14 Miscellaneous Medication (STRAINER TENDER Rate Change) 1 ea DAILY PRN MISC rate change 05/04/17 12:00 05/06/17 11:59 Miscellaneous Medication (STRAINER TENDER shift volume) 1 ea Q12HR@0700,1900 MISC 05/04/17 19:00 05/06/17 18:59 05/05/17 07:21 Naloxone HCl (Narcan) 0.1 mg PRN PRN IVP RR<12/min, pt unarousable 05/06/17 12:00 06/05/17 11:59 Naloxone HCl (Narcan) 0.1 mg Q1M PRN IVP RR<10/min OR SBP<90 mmHg 05/04/17 12:00 05/06/17 11:59 Non-Formulary Medication (Non-Formulary Med) 1 ea DAILY PRN ORAL ALLERGY 05/04/17 17:15 06/03/17 17:14 05/05/17 05:51 Ondansetron HCl (Zofran) 4 mg Q4HR PRN IVP Nausea & Vomiting 05/04/17 18:45 06/03/17 18:44 05/05/17 09:44 Oxycodone HCl (Roxicodone) 10 mg Q3HR PRN ORAL Moderate Breakthru Pain (5-7) 05/04/17 19:00 05/11/17 18:59 05/05/17 09:29 Pantoprazole (Protonix) 40 mg BEDTIME ORAL 05/04/17 21:00 06/03/17 20:59 05/04/17 21:21 Promethazine HCl (Phenergan) 12.5 mg Q8HR PRN IM Nausea & Vomiting 05/04/17 18:45 06/03/17 18:44 05/04/17 21:26 Sodium Chloride 1,000 ml @ 100 mls/hr Q10H IV 05/04/17 18:45 06/03/17 18:44 05/05/17 05:57 Temazepam (Restoril) 7.5 mg HSPRN PRN ORAL Insomnia 05/04/17 21:00 05/06/17 20:59 05/05/17 00:01 Temazepam (Restoril) 15 mg HSPRN PRN ORAL Insomnia 05/06/17 21:00 05/13/17 20:59 Allergies: Coded Allergies: BEE VENOM PROTEIN (HONEY BEE) (Verified Allergy, Severe, 05/04/17) BEE STING-ANAPHYLACTIC SHOCK HONEY (Verified Allergy, Severe, 05/04/17) ANAPHYLACTIC SHOCK IODINE (Verified Allergy, Severe, 05/04/17) ANAPHYLACTIC SHOCK Uncoded Allergies: SHELLFISH (Allergy, Severe, 05/04/17) ANAPHYLACIC SHOCK Subjective 57 YO M admitted with herniated disc and stenosis lumbar spine. S/P L2-3 fusion /disectomy 05/04/17. Cover for Int Med-Dr Restrepo Objective Last Vital Signs Date Time Temp Pulse Resp B/P (MAP) Pulse Ox O2 Delivery O2 Flow Rate FiO2 05/05/17 11:44 207.9 69 20 100 05/05/17 08:42 121/73 05/05/17 08:39 Room Air 05/04/17 15:50 3.0 Laboratory Tests Test 05/05/17 06:15 White Blood Count 14.7 K/UL (4.8-10.8) H Red Blood Count 4.37 M/UL (4.70-6.10) L Hemoglobin 14.3 G/DL (14.2-18.0) Hematocrit 41.6 % (42.0-52.0) L Mean Corpuscular Volume 95 FL (80-99) Mean Corpuscular Hemoglobin 32.8 PG (27.0-31.0) H Mean Corpuscular Hemoglobin Concent 34.5 G/DL (32.0-36.0) Red Cell Distribution Width 11.6 % (11.6-14.8) Platelet Count 257 K/UL (150-450) Mean Platelet Volume 7.5 FL (6.5-10.1) Neutrophils (%) (Auto) 75.8 % (45.0-75.0) H Lymphocytes (%) (Auto) 15.6 % (20.0-45.0) L Monocytes (%) (Auto) 7.9 % (1.0-10.0) Eosinophils (%) (Auto) 0.3 % (0.0-3.0) Basophils (%) (Auto) 0.5 % (0.0-2.0) Sodium Level 136 MMOL/L (136-145) Potassium Level 3.8 MMOL/L (3.5-5.1) Chloride Level 101 MMOL/L (98-107) Carbon Dioxide Level 28 MMOL/L (21-32) Anion Gap 7 mmol/L (5-15) Blood Urea Nitrogen 15 mg/dL (7-18) Creatinine 1.0 MG/DL (0.55-1.30) Estimat Glomerular Filtration Rate > 60 mL/min (>60) Glucose Level 217 MG/DL (74-106) H Calcium Level 8.4 MG/DL (8.5-10.1) L Intake and Output 05/04/17 05/05/17 19:00 07:00 Intake Total 2250 ml 1080 ml Output Total 1110 ml 700 ml Balance 1140 ml 380 ml Intake Oral 480 ml IV Total 2000 ml 600 ml Other 250 ml Output Urine Total 850 ml 700 ml Drainage Total 60 ml Estimated Blood Loss 200 ml # Voids 1 Objective General Appearance: WD/WN, alert, moderate distress, obese EENT: PERRL/EOMI, normal ENT inspection Neck: non-tender, normal alignment, supple Cardiovascular: normal peripheral pulses, normal rate, regular rhythm, no gallop/murmur, no JVD Respiratory/Chest: chest wall non-tender, lungs clear, normal breath sounds, no respiratory distress, no accessory muscle use Abdomen: normal bowel sounds, non tender, soft, no organomegaly, no mass Extremities: normal range of motion, non-tender Neurologic: band sawyer II-XII grossly normal, no motor/sensory deficits Skin: normal pigmentation, warm/dry Assessment/Plan Problem List: (1) HTN (hypertension) Assessment & Plan: continue losartan (2) Pre-diabetes Assessment & Plan: Continue novolog sliding scale (3) Hypothyroidism Assessment & Plan: Continue synthroid (4) Obstructive sleep apnea (5) Herniated nucleus pulposus, L2-3 left Assessment & Plan: S/P L2-3 fusion/disectomy-see surgery note Status: not improved DIEGO DUNBAR May 05, 2017 13:21
[2017-05-05 16:00] VITALS: BP 112/73
[2017-05-05 20:10] VITALS: BP 134/84
[2017-05-05] MEDS: BuPROPion XL 300mg tab ORAL SCH (20:52)
--- NOTE | 2017-05-05 21:15 | Progress Note ---
DATE: 05/05/2017 ACUTE PAIN MANAGEMENT PHYSICIAN PROGRESS NOTE MEDICATIONS: Medication administration record reviewed. Medications include IV fluids, Dilaudid PATENT PROSECUTION ATTORNEY, Colace, insulin, sliding scale medications, Protonix, Pepcid, Cozaar, Synthroid, Ancef, and Wellbutrin. P.r.n. medications include Restoril, Narcan, allergy medicines, Benadryl, Phenergan, Mylanta, Zofran, Catapres, oxycodone, Dilaudid, and albuterol. LABORATORY STUDIES: From this morning, 05/05/2017, shows white count 15, hematocrit 42, and platelets . Sodium 136, potassium 3.8, chloride 101, bicarb 28, BUN 15, creatinine 1.0, glucose 217, and calcium 8.4. PHYSICAL EXAMINATION: VITAL SIGNS: Afebrile, pulse 78, respirations 18, blood pressure 118/74, and oxygen saturation 99% on room air. I spent over 60 minutes in consultation today. I saw the patient at bedside with the surgeon, Dr. Lucio Garrett. The patient denies any shortness of breath or chest pain. The patient's nausea symptoms have improved. He is hungry and tolerated diabetic clear diet. We will advance him to 800 calorie diabetic diet for dinner. The patient is hungry. The patient's mood appears stable on his preoperative dose of Wellbutrin 300 mg at bedtime. He is using his Dilaudid PATENT PROSECUTION ATTORNEY fairly regularly to help with his pain control. The patient has been able to ambulate out of bed with the physical therapist and a front wheel walker has been left at the bedside to encourage in and out of bed. Since the patient does live alone, Dr. Garrett, the spine surgeon, ordered discharge planning evaluation for transfer to [place] [facility] hopefully on postoperative day #3, in 48 hours. Until that time, I will continue the PATENT PROSECUTION ATTORNEY Dilaudid for now. The patient also has p.r.n. doses of oxycodone along with subcutaneous Dilaudid, which I did encourage to help transition off of the PATENT PROSECUTION ATTORNEY unit. The patient does not appear to be anxious, I would avoid the class of benzodiazepines at this time beyond the low dose of Restoril, which remains available at bedtime p.r.n. The patient remains on IV fluids, which I will decrease in the rate to 75 mL an hour since he is tolerating oral intake. I will order an incentive spirometer at the bedside to encourage good pulmonary toilet. The patient will have sequential compression devices placed for DVT prophylaxis. The output from the indwelling lumbar spine drain catheter decreased considerably. With the patient in the sitting position stabilized by holding the handles of his front wheel walker while sitting on the bed, I examined the patient's lumbar spine wound. The dressing was intact and appeared dry. I removed the dressing, which showed the incision line clean and dry with no evidence for erythema or exudate. The DuraBond sealant was intact. The drain hole site also appeared clean and dry. With the Hemovac drain taken off of suction and with end-expiration, I personally removed the indwelling lumbar spine drain catheter. The tip was intact. Alcohol swab was applied generously to the drain hole site along with the incision line. A sterile Island border gauze dressing was then applied without any complications. Lucio Fragoso M.D. DR: KATHI JOB#: [id number] CC:
[2017-05-06 00:15] VITALS: BP 145/92
[2017-05-06] MEDS: oxyCODONE 5mg IR tab ORAL PRN ×5 (00:24→22:47)
[2017-05-06 05:00] VITALS: BP 151/94
[2017-05-06] MEDS ORDERED: Tamsulosin 0.4mg cap ORAL SCH (06:00)
[2017-05-06] MEDS: NovoLOG Insulin Flexpen SUBQ SCH ×4 (06:07→20:48)
[2017-05-06 06:51] LABS: BASOPHILS % (AUTO) 1.2 % (0.0-2.0); HEMATOCRIT 41.5 % (42.0-52.0); HEMOGLOBIN 14.9 G/DL (14.2-18.0); LYMPHOCYTES % (AUTO) 10.7 % (20.0-45.0); MEAN CORPUSCULAR VOLUME 94 FL (80-99); MONOCYTES % (AUTO) 10.5 % (1.0-10.0); NEUTROPHILS % (AUTO) 76.6 % (45.0-75.0); PLATELET COUNT 223 K/UL (150-450); RED BLOOD COUNT 4.43 M/UL (4.70-6.10); RED CELL DISTRIBUTION WIDTH 11.4 % (11.6-14.8)
[2017-05-06] MEDS: PCA shift volume MISC SCH (07:00)
[2017-05-06 07:11] LABS: ANION GAP 10 mmol/L (5-15); BLOOD UREA NITROGEN 10 mg/dL (7-18); CALCIUM 8.4 MG/DL (8.5-10.1); CARBON DIOXIDE 25 MMOL/L (21-32); CHLORIDE 96 MMOL/L (98-107); POTASSIUM 3.8 MMOL/L (3.5-5.1); SODIUM 131 MMOL/L (136-145)
[2017-05-06 08:00] VITALS: BP 152/93
[2017-05-06] MEDS: Docusate 100mg cap ORAL SCH ×2 (08:17→17:25)
[2017-05-06] MEDS: Losartan 50mg tab ORAL SCH (08:18)
--- NOTE | 2017-05-06 09:15 | Orthopedic Spine Progress Note ---
Ortho Spine - Progress Note Subjective Symptoms: c/o post-op back pain - preop back pain better, now all incisional Objective Vital Signs: Last 24 Hour Vital Signs Date Time Temp Pulse Resp B/P (MAP) Pulse Ox O2 Delivery O2 Flow Rate FiO2 05/06/17 08:31 93 20 Room Air 21 05/06/17 08:18 152/93 05/06/17 08:00 97.2 110 20 152/93 97 97.2 05/06/17 05:00 99.5 98 18 151/94 93 Room Air 99.5 05/06/17 04:00 18 05/06/17 00:15 98.1 94 20 145/92 95 Room Air 98.1 05/06/17 00:00 17 05/05/17 20:10 97.3 75 20 134/84 95 Room Air 97.3 05/05/17 20:00 17 05/05/17 19:02 80 18 Room Air 21 05/05/17 18:54 17 05/05/17 18:53 17 05/05/17 16:00 97.4 62 20 112/73 99 Room Air 97.4 05/05/17 16:00 16 05/05/17 12:00 98.0 78 18 118/74 99 Room Air 98.0 05/05/17 12:00 16 05/05/17 11:44 207.9 69 20 100 I&O: Intake and Output 05/05/17 05/06/17 19:00 07:00 Intake Total 1067 ml Balance 1067 ml Intake Oral 720 ml IV Total 347 ml Wound: clean, intact Neuro Status: normal Assessment Procedure Performed: L23 XLIF, PSF with decompression Plan Plan: PT, pain management, discharge plan ROXANA JAVIER May 06, 2017 09:15
[2017-05-06 12:00] VITALS: BP 144/88
[2017-05-06] MEDS ORDERED: Naloxone 0.4mg/ml Inj IVP PRN (12:00)
[2017-05-06] MEDS ORDERED: HYDROmorphone 1mg/ml Carpuject SUBQ PRN (12:00)
[2017-05-06] MEDS ORDERED: Norco 5mg/325mg tab ORAL PRN (12:00)
[2017-05-06] MEDS ORDERED: HYDROcodone/Acetamin 7.5/325 tab ORAL PRN ×2 (12:00)
--- NOTE | 2017-05-06 12:15 | Progress Note ---
DATE: 05/06/2017 ACUTE PAIN MANAGEMENT PHYSICIAN PROGRESS NOTE MEDICATIONS: Medication administration record reviewed. Medications include Tylenol, Mylanta, Proventil, Wellbutrin, Catapres, Benadryl, Colace, Pepcid, Dilaudid SATIN FINISHER, breakthrough Dilaudid, Novolin, insulin, Synthroid, Cozaar, milk of magnesia, Zofran, oxycodone, Protonix, Phenergan, and Restoril. PHYSICAL EXAMINATION: VITAL SIGNS: A low-grade fever 99.5, pulse 98, respirations 18, blood pressure 151/94, and oxygen saturation 93% on room air. LABORATORY STUDIES: From this morning, shows elevated white count of 16, hematocrit 42, and platelets 223. Sodium 131, potassium 3.8, chloride 96, BUN 10, creatinine 1.0, glucose 190, and calcium 8.4. I spent over 60 minutes in consultation today. I saw the patient at bedside with the nurse RNSherrill. I discussed the case with the overnight nurse RNTye along with the charge nurse RNZakia. I discussed the case with the surgeon, Dr. Garrett as well as the physical therapist. The patient's nausea symptoms have abated. He has been placed on an 1800 diabetic diet and tolerating it well. I will Hep-Lock his IV fluids at this time. Then, at noontime today, discontinue his SATIN FINISHER and Hep-Lock his IV to encourage ambulation. The physical therapist has cleared the patient to move in and out of bed and ambulate on his own. He does have a front wheel walker at the bedside to encourage ambulation. Examination of the lumbar spine wounds showed the dressing is clean, dry, and intact. The patient remains on Wellbutrin for mood stabilization. The patient was having some urinary retention issues. I dosed the patient with Flomax and since that time, the patient has been voiding urine fully without difficulties. I have encouraged the nurse and the patient to use the breakthrough oral oxycodone to help transition off of the SATIN FINISHER. The patient will continue using his p.r.n. breakthrough doses of Dilaudid for severe pain episodes. Since the patient is more ambulatory, I will dose him with milk of magnesia today to help with bowel regularity. The patient states that he had already pre-arranged with his corporate associate attorney and the surgeon for preauthorization for transfer to a rehabilitation. The charge nurse RN Zakia will discuss with the community planner to help expedite transfer to [place] [facility] tomorrow per the surgeon's request. I demonstrate proper usage of incentive spirometer at the bedside with the patient. With his elevated white count and low-grade fever, he likely has postoperative atelectasis contributing. I will recheck a WBC count tomorrow morning to follow the trend, as there were no other signs of active infection at this time. Lucio Fragoso M.D. DR: SPENCER JOB#: [id number] CC:
[2017-05-06] MEDS: HYDROmorphone 1mg/ml Carpuject SUBQ PRN ×4 (13:11→20:51)
[2017-05-06] MEDS: CHLORPHENIRAMINE ORAL PRN (14:38)
[2017-05-06] MEDS: PSEUDOEPHEDRINE ORAL PRN (14:38)
--- NOTE | 2017-05-06 15:48 | Internal Med Progress Note ---
Subjective Date of Service: May 06, 2017 Physician Name Eduardo Dunbar Attending Physician Lucio Garrett Current Medications Medications (Trade) Dose Ordered Sig/Rebekah Route PRN Reason Start Time Stop Time Status Last Admin Dose Admin Acetaminophen (Tylenol) 650 mg Q4H PRN RECTAL headache or temp>101 05/04/17 12:15 06/03/17 12:14 Al Hydroxide/Mg Hydroxide (Mylanta) 30 ml Q6H PRN ORAL GERD 05/04/17 18:45 06/03/17 18:44 Albuterol Sulfate (Proventil MDI) 2 puff Q6H PRN INH Shortness of Breath 05/05/17 09:00 06/04/17 08:59 Bupropion HCl (Wellbutrin XL) 300 mg QHS ORAL 05/04/17 21:00 06/03/17 20:59 05/05/17 20:52 Clonidine HCl (Catapres Tab) 0.1 mg Q8HR PRN ORAL For High Blood Pressure 05/04/17 18:45 06/03/17 18:44 Diphenhydramine HCl (Benadryl) 25 mg Q6H PRN ORAL Itching 05/04/17 18:45 06/03/17 18:44 Docusate Sodium (Colace) 100 mg TWICE A DAY ORAL 05/04/17 18:00 06/03/17 17:59 05/06/17 08:17 Famotidine (Pepcid) 20 mg BID ORAL 05/05/17 09:00 06/04/17 08:59 05/06/17 09:53 Hydromorphone HCl (Dilaudid) 1 mg Q3HR PRN SUBQ Severe Breakthru Pain (>7) 05/04/17 19:00 05/11/17 18:59 05/06/17 13:11 Insulin Aspart (NovoLOG) ACCUCHECK AC AND HS AC+HS SUBQ 05/04/17 17:38 06/03/17 17:37 05/06/17 11:59 Levothyroxine Sodium (Synthroid) 200 mcg DAILY@0630 ORAL 05/05/17 06:30 06/04/17 06:29 05/06/17 06:02 Losartan Potassium (Cozaar) 50 mg DAILY ORAL 05/05/17 09:00 4/13/18 08:59 05/06/17 08:18 Magnesium Hydroxide (Mom) 30 ml QIDPRN PRN ORAL Constipation 05/04/17 12:15 06/03/17 12:14 05/06/17 08:17 Naloxone HCl (Narcan) 0.1 mg PRN PRN IVP RR<12/min, pt unarousable 05/06/17 12:00 06/05/17 11:59 Non-Formulary Medication (Non-Formulary Med) 1 ea DAILY PRN ORAL ALLERGY 05/04/17 17:15 06/03/17 17:14 05/06/17 14:38 Ondansetron HCl (Zofran) 4 mg Q4HR PRN IVP Nausea & Vomiting 05/04/17 18:45 06/03/17 18:44 05/05/17 17:43 Oxycodone HCl (Roxicodone) 10 mg Q3HR PRN ORAL Moderate Breakthru Pain (5-7) 05/04/17 19:00 05/11/17 18:59 05/06/17 08:19 Pantoprazole (Protonix) 40 mg BEDTIME ORAL 05/04/17 21:00 06/03/17 20:59 05/05/17 20:52 Promethazine HCl (Phenergan) 12.5 mg Q8HR PRN IM Nausea & Vomiting 05/04/17 18:45 06/03/17 18:44 05/05/17 20:49 Tamsulosin HCl (Flomax) 0.4 mg DAILY ORAL 05/06/17 06:00 06/05/17 05:59 05/06/17 06:01 Temazepam (Restoril) 15 mg HSPRN PRN ORAL Insomnia 05/06/17 21:00 05/13/17 20:59 Allergies: Coded Allergies: BEE VENOM PROTEIN (HONEY BEE) (Verified Allergy, Severe, 05/04/17) BEE STING-ANAPHYLACTIC SHOCK HONEY (Verified Allergy, Severe, 05/04/17) ANAPHYLACTIC SHOCK IODINE (Verified Allergy, Severe, 05/04/17) ANAPHYLACTIC SHOCK Uncoded Allergies: SHELLFISH (Allergy, Severe, 05/04/17) ANAPHYLACIC SHOCK ROS Limited/Unobtainable: No Constitutional: Reports: no symptoms HEENT: Reports: no symptoms Cardiovascular: Reports: no symptoms Respiratory: Reports: no symptoms Gastrointestinal/Abdominal: Reports: no symptoms Genitourinary: Reports: no symptoms Neurologic/Psychiatric: Reports: no symptoms Subjective 57 YO M admitted with herniated disc and stenosis lumbar spine. S/P L2-3 fusion /disectomy 05/04/17. Cover for Int Med-Dr Restrepo. Await acceptance to [facility] (Formerly [facility]). Objective Last Vital Signs Date Time Temp Pulse Resp B/P (MAP) Pulse Ox O2 Delivery O2 Flow Rate FiO2 05/06/17 13:11 97.9 05/06/17 12:00 18 05/06/17 12:00 93 144/88 95 05/06/17 08:31 Room Air 21 05/04/17 15:50 3.0 Laboratory Tests Test 05/06/17 06:10 White Blood Count 16.0 K/UL (4.8-10.8) H Red Blood Count 4.43 M/UL (4.70-6.10) L Hemoglobin 14.9 G/DL (14.2-18.0) Hematocrit 41.5 % (42.0-52.0) L Mean Corpuscular Volume 94 FL (80-99) Mean Corpuscular Hemoglobin 33.6 PG (27.0-31.0) H Mean Corpuscular Hemoglobin Concent 35.9 G/DL (32.0-36.0) Red Cell Distribution Width 11.4 % (11.6-14.8) L Platelet Count 223 K/UL (150-450) Mean Platelet Volume 7.9 FL (6.5-10.1) Neutrophils (%) (Auto) 76.6 % (45.0-75.0) H Lymphocytes (%) (Auto) 10.7 % (20.0-45.0) L Monocytes (%) (Auto) 10.5 % (1.0-10.0) H Eosinophils (%) (Auto) 1.0 % (0.0-3.0) Basophils (%) (Auto) 1.2 % (0.0-2.0) Sodium Level 131 MMOL/L (136-145) L Potassium Level 3.8 MMOL/L (3.5-5.1) Chloride Level 96 MMOL/L (98-107) L Carbon Dioxide Level 25 MMOL/L (21-32) Anion Gap 10 mmol/L (5-15) Blood Urea Nitrogen 10 mg/dL (7-18) Creatinine 1.0 MG/DL (0.55-1.30) Estimat Glomerular Filtration Rate > 60 mL/min (>60) Glucose Level 190 MG/DL (74-106) H Calcium Level 8.4 MG/DL (8.5-10.1) L Microbiology Date/Time Source Procedure Growth Status 05/04/17 07:00 Nasal Nares MRSA Culture - Final NO METHICILLIN RESISTANT STAPH AUREUS... Complete Intake and Output 05/05/17 05/06/17 19:00 07:00 Intake Total 1067 ml Balance 1067 ml Intake Oral 720 ml IV Total 347 ml Objective General Appearance: WD/WN, alert, moderate distress, obese EENT: PERRL/EOMI, normal ENT inspection Neck: non-tender, normal alignment, supple Cardiovascular: normal peripheral pulses, normal rate, regular rhythm, no gallop/murmur, no JVD Respiratory/Chest: chest wall non-tender, lungs clear, normal breath sounds, no respiratory distress, no accessory muscle use Abdomen: normal bowel sounds, non tender, soft, no organomegaly, no mass Extremities: normal range of motion, non-tender Neurologic: carpenter repairer II-XII grossly normal, no motor/sensory deficits Skin: normal pigmentation, warm/dry Assessment/Plan Problem List: (1) HTN (hypertension) Assessment & Plan: continue losartan (2) Pre-diabetes Assessment & Plan: Continue novolog sliding scale (3) Hypothyroidism Assessment & Plan: Continue synthroid (4) Obstructive sleep apnea (5) Herniated nucleus pulposus, L2-3 left Assessment & Plan: S/P L2-3 fusion/disectomy-see surgery note Assessment/Plan Discharge to [facility] (Former[facility]) when accepted. EDUARDO DUNBAR May 06, 2017 15:48
[2017-05-06 16:00] VITALS: BP 158/79
[2017-05-06 20:00] VITALS: BP 135/82
[2017-05-06] MEDS: BuPROPion XL 300mg tab ORAL SCH (20:42)
[2017-05-07] MEDS: HYDROmorphone 1mg/ml Carpuject SUBQ PRN (00:14)
[2017-05-07 00:19] VITALS: BP 156/82
[2017-05-07] MEDS: oxyCODONE 5mg IR tab ORAL PRN ×7 (01:45→21:12)
[2017-05-07 04:00] VITALS: BP 145/89
--- NOTE | 2017-05-07 04:45 | Progress Note ---
DATE: 05/07/2017 ACUTE PAIN MANAGEMENT PHYSICIAN PROGRESS NOTE MEDICATIONS: Medication administration record reviewed. Mediations include Colace, diabetes, Protonix, Pepcid, Cozaar, Flomax, Synthroid, and Wellbutrin. The p.r.n. medications include Narcan, Restoril, milk of magnesia, Tylenol, Benadryl, Phenergan, Mylanta, Zofran, Catapres, oxycodone, Dilaudid, and albuterol. LABORATORY AND DIAGNOSTIC DATA: Morning laboratory studies are pending. PHYSICAL EXAMINATION: VITAL SIGNS: Shows afebrile for the past 18 hours, pulse 90, respirations 20, blood pressure 156/82, and oxygen saturation 94% on room air. I spent over 60 minutes in consultation today. I saw the patient at the bedside with the nurse RN, Guy. The patient has been ambulating well in and out of bed to the restroom. His oral intake has been excellent and we have Hep-Lock his IV to encourage movement in and out of bed. I stopped the PHYSICAL SCIENCE AIDE unit yesterday, at noon time, and the patient has been alternating breakthrough doses of subcutaneous Dilaudid with oral oxycodone for relatively adequate pain control. I did encourage the patient to decrease the Dilaudid usage. We will consider increasing the dose of the oxycodone from 10 mg to 15 mg to help reduce Dilaudid requirements. I spoke with the patient's assistant prosecuting attorney's office to help expedite transfer to [facility] later today as is the plan. We will wait for morning laboratory studies to be drawn to be certain that his WBC continues to trend in the proper direction. The patient is compliant using his incentive spirometer with increased ambulation, should have lower contribution with atelectasis. I will defer transfer plans to the surgical and medical teams. With diabetes and hypertension, I will defer these issues to Dr. Restrepo and Dr. Barth. Lucio Fragoso M.D. DR: HO JOB#: [id number] CC:
[2017-05-07] MEDS: NovoLOG Insulin Flexpen SUBQ SCH ×4 (06:05→21:15)
[2017-05-07 07:27] LABS: ANION GAP 8 mmol/L (5-15); BLOOD UREA NITROGEN 10 mg/dL (7-18); CALCIUM 8.5 MG/DL (8.5-10.1); CARBON DIOXIDE 28 MMOL/L (21-32); CHLORIDE 99 MMOL/L (98-107); CREATININE 0.9 MG/DL (0.55-1.30); POTASSIUM 3.5 MMOL/L (3.5-5.1); SODIUM 135 MMOL/L (136-145)
[2017-05-07 07:43] LABS: EOSINOPHILS % (AUTO) 2.1 % (0.0-3.0); HEMATOCRIT 41.6 % (42.0-52.0); HEMOGLOBIN 14.4 G/DL (14.2-18.0); LYMPHOCYTES % (AUTO) 15.6 % (20.0-45.0); MEAN CORPUSCULAR VOLUME 92 FL (80-99); NEUTROPHILS % (AUTO) 70.3 % (45.0-75.0); PLATELET COUNT 252 K/UL (150-450); RED BLOOD COUNT 4.51 M/UL (4.70-6.10); RED CELL DISTRIBUTION WIDTH 11.4 % (11.6-14.8)
[2017-05-07 08:00] VITALS: BP 136/80
[2017-05-07] MEDS: Docusate 100mg cap ORAL SCH ×2 (08:51→18:13)
[2017-05-07] MEDS: Losartan 50mg tab ORAL SCH (08:52)
[2017-05-07] MEDS ORDERED: CHLORPHENIRAMINE ORAL PRN (10:15)
[2017-05-07] MEDS ORDERED: PSEUDOEPHEDRINE ORAL PRN (10:15)
[2017-05-07 12:20] VITALS: BP 130/76
[2017-05-07 16:00] VITALS: BP_SYST 125; BP_SYST 137; BP_DIAS 81; BP_DIAS 91
[2017-05-07] MEDS ORDERED: PERCOCET 10-321 EACH ORAL (16:11)
--- NOTE | 2017-05-07 17:42 | Internal Med Progress Note ---
Subjective Date of Service: May 07, 2017 Physician Name Eduardo Barth Attending Physician Lucio Garrett Current Medications Medications (Trade) Dose Ordered Sig/Rebekah Route PRN Reason Start Time Stop Time Status Last Admin Dose Admin Acetaminophen (Tylenol) 650 mg Q4H PRN RECTAL headache or temp>101 05/04/17 12:15 06/03/17 12:14 Al Hydroxide/Mg Hydroxide (Mylanta) 30 ml Q6H PRN ORAL GERD 05/04/17 18:45 06/03/17 18:44 Albuterol Sulfate (Proventil MDI) 2 puff Q6H PRN INH Shortness of Breath 05/05/17 09:00 06/04/17 08:59 Bupropion HCl (Wellbutrin XL) 300 mg QHS ORAL 05/04/17 21:00 06/03/17 20:59 05/06/17 20:42 Clonidine HCl (Catapres Tab) 0.1 mg Q8HR PRN ORAL For High Blood Pressure 05/04/17 18:45 06/03/17 18:44 Diphenhydramine HCl (Benadryl) 25 mg Q6H PRN ORAL Itching 05/04/17 18:45 06/03/17 18:44 Docusate Sodium (Colace) 100 mg TWICE A DAY ORAL 05/04/17 18:00 06/03/17 17:59 05/07/17 08:51 Famotidine (Pepcid) 20 mg BID ORAL 05/05/17 09:00 06/04/17 08:59 05/07/17 08:52 Hydromorphone HCl (Dilaudid) 1 mg Q3HR PRN SUBQ Severe Breakthru Pain (>7) 05/04/17 19:00 05/11/17 18:59 05/07/17 00:14 Insulin Aspart (NovoLOG) ACCUCHECK AC AND HS AC+HS SUBQ 05/04/17 17:38 06/03/17 17:37 05/07/17 11:59 Levothyroxine Sodium (Synthroid) 200 mcg DAILY@0630 ORAL 05/05/17 06:30 06/04/17 06:29 05/07/17 06:04 Losartan Potassium (Cozaar) 50 mg DAILY ORAL 05/05/17 09:00 4/13/18 08:59 05/07/17 08:52 Magnesium Hydroxide (Mom) 30 ml QIDPRN PRN ORAL Constipation 05/04/17 12:15 06/03/17 12:14 05/06/17 08:17 Naloxone HCl (Narcan) 0.1 mg PRN PRN IVP RR<12/min, pt unarousable 05/06/17 12:00 06/05/17 11:59 Ondansetron HCl (Zofran) 4 mg Q4HR PRN IVP Nausea & Vomiting 05/04/17 18:45 06/03/17 18:44 05/05/17 17:43 Oxycodone HCl (Roxicodone) 15 mg Q3HR PRN ORAL Moderate Breakthru Pain (5-7) 05/07/17 04:15 05/14/17 04:14 05/07/17 15:04 Pantoprazole (Protonix) 40 mg BEDTIME ORAL 05/04/17 21:00 06/03/17 20:59 05/06/17 20:42 Patient Own Medication (Patient's Own Med) 1 ea DAILYPRN PRN ORAL ALLERGY 05/07/17 10:15 06/06/17 10:14 Allergies: Coded Allergies: BEE VENOM PROTEIN (HONEY BEE) (Verified Allergy, Severe, 05/04/17) BEE STING-ANAPHYLACTIC SHOCK HONEY (Verified Allergy, Severe, 05/04/17) ANAPHYLACTIC SHOCK IODINE (Verified Allergy, Severe, 05/04/17) ANAPHYLACTIC SHOCK Uncoded Allergies: SHELLFISH (Allergy, Severe, 05/04/17) ANAPHYLACIC SHOCK ROS Limited/Unobtainable: No Constitutional: Reports: no symptoms HEENT: Reports: no symptoms Cardiovascular: Reports: no symptoms Respiratory: Reports: no symptoms Gastrointestinal/Abdominal: Reports: no symptoms Genitourinary: Reports: no symptoms Neurologic/Psychiatric: Reports: no symptoms Subjective 57 YO M admitted with herniated disc and stenosis lumbar spine. S/P L2-3 fusion /disectomy 05/04/17. Cover for Int Med-Dr Restrepo. Await transfer to [facility]. Objective Last Vital Signs Date Time Temp Pulse Resp B/P (MAP) Pulse Ox O2 Delivery O2 Flow Rate FiO2 05/07/17 12:20 97.8 79 20 130/76 94 Room Air 97.8 05/07/17 09:23 21 05/04/17 15:50 3.0 Laboratory Tests Test 05/07/17 06:35 White Blood Count 13.0 K/UL (4.8-10.8) H Red Blood Count 4.51 M/UL (4.70-6.10) L Hemoglobin 14.4 G/DL (14.2-18.0) Hematocrit 41.6 % (42.0-52.0) L Mean Corpuscular Volume 92 FL (80-99) Mean Corpuscular Hemoglobin 32.0 PG (27.0-31.0) H Mean Corpuscular Hemoglobin Concent 34.7 G/DL (32.0-36.0) Red Cell Distribution Width 11.4 % (11.6-14.8) L Platelet Count 252 K/UL (150-450) Mean Platelet Volume 7.6 FL (6.5-10.1) Neutrophils (%) (Auto) 70.3 % (45.0-75.0) Lymphocytes (%) (Auto) 15.6 % (20.0-45.0) L Monocytes (%) (Auto) 11.0 % (1.0-10.0) H Eosinophils (%) (Auto) 2.1 % (0.0-3.0) Basophils (%) (Auto) 1.0 % (0.0-2.0) Sodium Level 135 MMOL/L (136-145) L Potassium Level 3.5 MMOL/L (3.5-5.1) Chloride Level 99 MMOL/L (98-107) Carbon Dioxide Level 28 MMOL/L (21-32) Anion Gap 8 mmol/L (5-15) Blood Urea Nitrogen 10 mg/dL (7-18) Creatinine 0.9 MG/DL (0.55-1.30) Estimat Glomerular Filtration Rate > 60 mL/min (>60) Glucose Level 192 MG/DL (74-106) H Calcium Level 8.5 MG/DL (8.5-10.1) Intake and Output 05/06/17 05/07/17 19:00 07:00 Intake Total 1220 ml 800 ml Output Total 550 ml Balance 670 ml 800 ml Intake Oral 770 ml 800 ml IV Total 450 ml Output Urine Total 550 ml # Voids 7 4 Objective General Appearance: WD/WN, alert, moderate distress, obese EENT: PERRL/EOMI, normal ENT inspection Neck: non-tender, normal alignment, supple Cardiovascular: normal peripheral pulses, normal rate, regular rhythm, no gallop/murmur, no JVD Respiratory/Chest: chest wall non-tender, lungs clear, normal breath sounds, no respiratory distress, no accessory muscle use Abdomen: normal bowel sounds, non tender, soft, no organomegaly, no mass Extremities: normal range of motion, non-tender Neurologic: seat mender II-XII grossly normal, no motor/sensory deficits Skin: normal pigmentation, warm/dry Assessment/Plan Problem List: (1) HTN (hypertension) Assessment & Plan: continue losartan (2) Pre-diabetes Assessment & Plan: Continue novolog sliding scale (3) Hypothyroidism Assessment & Plan: Continue synthroid (4) Obstructive sleep apnea (5) Herniated nucleus pulposus, L2-3 left Assessment & Plan: S/P L2-3 fusion/disectomy-see surgery note Assessment/Plan Discharge to [facility] EDUARDO Hester May 07, 2017 17:42
[2017-05-07 20:00] VITALS: BP 131/80
[2017-05-07] MEDS: BuPROPion XL 300mg tab ORAL SCH (21:12)
--- NOTE | 2017-05-10 12:56 | Discharge Summary ---
Discharge Summary Hospital Course Date of Admission May 04, 2017 at 05:59 Date of Discharge May 07, 2017 at 23:11 Admitting Diagnosis Disk protrusion L2-L3 with left-sided facet cyst and progressive deformity. Reason for Hospitalization: elective surgery HPI Carlos Blair is a 57 year old male who was admitted on May 04, 2017 at 05: 59 for disk protrusion L2-L3 with left-sided facet cyst and progressive deformity. Consultations dr Fragoso -pain specialist dr Restrepo - IM Procedures s/p 05/[address] Garrett ( surgery) 1. Far lateral extraforaminal interbody fusion L2-L3 approach through a left-sided approach. 2. Interbody fusion L2-L3. 3. Royal of rib for bone graft purposes. 4. Use of allograft (Signafuse). 5. Use of PEEK cage RTI interbody fusion device. 6. Use of fluoroscopy. 7. Neurodiagnostic monitoring. s/p 05/04/[address] Garrett 1. Posterior spinal fusion, L2-L3. 2. Interspinous nonsegmental fusion using StabiLink device. 3. Hemilaminectomy, left side L2-L3 with neurolysis and diskectomy, left side. 4. Use of local autograft. 5. Use of Signafuse allograft substitute. 6. Use of fluoroscopy. s/p 05/04/[address] Payne ( approach) 1. Muscle sparing extraperitoneal - extrapleural extreme lateral interbody fusion, L2-L3 (1 interspace). 2. Transpsoas exposure of the lateral surface of the spine at L2-L3. 3. Resection, left 12th rib. Hospital Course s/p surgery course of recovery uneventful initially IVF empiric abx pain management neurovascular intact encouraged early ambulation with PT/OT, fall precautions IS at the bedside, taught and encouraged to use diet as tolerated, a/emetic prn GI prophylaxis O2 HHN prn BP management with ARB, stable BS management with SS insulin continue levothyroxine CPAP at night ( patient brought his own) bowel regimen instituted patient clinically improved pain controlled, ambulated, neurovascular stable, dressing C/D/I, tolerated diet, voided freely patient was stable for dc outpt fup with surgeon as advised dc instructions provided FINAL DIAGNOSIS L 2-3 herniated nucleus pulposa, instability and L stenosis L2-L3 disk protrusion, left side with facet cyst, left side. Progressive diskopathy requiring stabilization/fusion. Mechanical back pain and progressive deformity. s/p 3/13 L 2-3 XLIF, PSF with decompression s/p slip and fall injury HTN MOODY DM fatty liver asthma Discharge Medications Continued Medications: Oxycodone Hcl/Acetaminophen 10-325 Mg Tablet (Percocet 10-325 Mg Tablet*) 1 Each Tablet 1 TAB ORAL Q4H PRN for For Pain, #50 TAB Discharge Condition Upon Discharge: stable Discharge Disposition Patient was discharged to [facility] Discharge Diagnoses: Discharge Instructions Discharge Instructions Special Instructions I have been assigned to complete a D/C Summary on this account. I was not involved in the patient management Danna Hernandez NP ([place]) May 10, 2017 12:56
== END 2017-05-07 23:11 | disposition short-term general hospital (02) | DRG 460 ==
LOC: SDSOVERFLO 05:59 → 3E 16:16
PROC: 0SG00A0 Fusion of Lumbar Vertebral Joint with Interbody Fusion Device, Anterior Approach, Anterior Column, Open Approach (ICD-10-PCS; principal; 2017-05-04 08:00)
PROC: 0SB20ZZ Excision of Lumbar Vertebral Disc, Open Approach (ICD-10-PCS; principal; 2017-05-04 08:00)
PROC: 0PB10ZZ Excision of 1 to 2 Ribs, Open Approach (ICD-10-PCS; principal; 2017-05-04 08:00)
DX: M51.36 Other intervertebral disc degeneration, lumbar region (principal); K76.0 Fatty (change of) liver, not elsewhere classified; E03.9 Hypothyroidism, unspecified; E11.9 Type 2 diabetes mellitus without complications; E66.9 Obesity, unspecified; M53.2X6 Spinal instabilities, lumbar region; M48.061 Spinal stenosis, lumbar region without neurogenic claudication; R11.2 Nausea with vomiting, unspecified; G47.33 Obstructive sleep apnea (adult) (pediatric); W01.0XXS Fall on same level from slipping, tripping and stumbling without subsequent striking against object, sequela; J45.909 Unspecified asthma, uncomplicated; K21.9 Gastro-esophageal reflux disease without esophagitis
CPT/HCPCS: 36415; 71046; 72020; 76001; 80048; 80053; 81001; 82248; 82962; 83735; 84100; 85025; 85610; 85730; 86850; 86900; 86901; 86920; 87081; 87086; 94003; 94150; 94640; 94664; J1580; J1815; J2250; J2405; J2710